=== PATIENT | male | born 1975 | race Caucasian/White ===

== ENCOUNTER 2022-10-31 06:34 | Day surgery (SDC) | payer BC, OTHER ==
[2022-10-31] MEDS ORDERED: Midazolam 1 MG/ML 2 ML SDV ONE (07:11)
[2022-10-31] MEDS ORDERED: Propofol 200 MG/20 ML SDV ONE ×2 (07:11→07:37)
[2022-10-31] MEDS ORDERED: fentaNYL 100 MCG/2 ML SDV ONE (07:11)
[2022-10-31] MEDS ORDERED: Sodium Chloride 0.9% 1,000 ML IV SCH (07:30)
== END 2022-10-31 08:45 | disposition home or self-care (01) ==
LOC: JP.SDS 06:34
PROVIDERS: ATTEND Internal Medicine
DX: Z12.11 Encounter for screening for malignant neoplasm of colon (principal); Z80.0 Family history of malignant neoplasm of digestive organs; F17.200 Nicotine dependence, unspecified, uncomplicated
CPT/HCPCS: 45378; J2250; J2704; J3010; J7030